=== PATIENT | female | born 1965 | race Caucasian/White ===

== ENCOUNTER → 2018-12-05 | Outpatient (CLI) | payer BC | LOC: GIMAGING 14:10 ==

== ENCOUNTER → 2018-12-25 | Outpatient (CLI) | payer BC | LOC: FIMAGING 11:36 | PROVIDERS: ATTEND Physician Assistant | DX: M79.672 Pain in left foot (principal) ==

== ENCOUNTER → 2018-12-26 | Outpatient (CLI) | payer BC | LOC: FIMAGING 15:57 | PROVIDERS: ATTEND Physician Assistant | DX: N83.292 Other ovarian cyst, left side (principal); R14.0 Abdominal distension (gaseous); R68.81 Early satiety; R19.8 Other specified symptoms and signs involving the digestive system and abdomen; M79.672 Pain in left foot; Z79.890 Hormone replacement therapy; Z90.710 Acquired absence of both cervix and uterus ==

== ENCOUNTER 2019-02-08 11:15 | Emergency (ER) | payer BC | END 2019-02-08 13:09 | disposition home or self-care (01) ==